=== PATIENT | male | born 1960 | race Caucasian/White ===

== ENCOUNTER 2019-06-03 07:47 | Day surgery (SDC) | payer BC ==
[~2019-06-03 07:47] MED LIST: Lactated Ringers 1,000 ML IV SCH
[2019-06-03] MEDS ORDERED: fentaNYL 100 MCG/2 ML SDV ONE (09:39)
[2019-06-03] MEDS ORDERED: Propofol 200 MG/20 ML SDV ONE (09:39)
[2019-06-03] MEDS ORDERED: Midazolam 1 MG/ML 2 ML SDV ONE (09:39)
--- NOTE | 2019-06-03 13:37 | OR ---
DATE OF PROCEDURE: 06/03/2019 PREOPERATIVE DIAGNOSIS: History of adenomatous colon polyps. POSTOPERATIVE DIAGNOSES: Small transverse colon polyp, history of adenomatous colon polyps. PROCEDURE: Colonoscopy to the cecum with biopsy resection of small transverse colon polyp. SURGEON: Mendez Wilkerson MD ANESTHESIA: IV anesthesia with monitored anesthesia care. INDICATION: This 58-year-old white male is referred for a colonoscopy because of a history of adenomatous colon polyps. He says his last colonoscopic exam was done 5 years ago. I counseled him for the procedure, including risks and alternatives, and he gave his informed consent to proceed. DESCRIPTION OF PROCEDURE: The patient was placed in the left lateral decubitus position. IV anesthesia was administered by the Anesthesia Service. Time-out was held. A rectal exam was performed, which was unremarkable. The flexible video Olympus colonoscope was introduced through his anus, up his rectum, and out his colon all the way to the cecum. En route, in the transverse colon, we saw a small polyp, which was removed with a few bites of the biopsy forceps. Once the cecum was reached, the scope was slowly withdrawn examining the mucosa throughout. No additional mucosal abnormalities were noted. The scope was retroflexed in the rectum with the distal rectum appearing unremarkable. The scope was straightened and removed. He tolerated the procedure well. Mendez Wilkerson MD /[id number] MTDD
== END 2019-06-03 11:57 | disposition home or self-care (01) ==
LOC: JP.SDS 07:47
PROVIDERS: ATTEND Surgery
DX: Z12.11 Encounter for screening for malignant neoplasm of colon (principal); D12.3 Benign neoplasm of transverse colon; I10 Essential (primary) hypertension; E78.5 Hyperlipidemia, unspecified; E66.9 Obesity, unspecified; K21.9 Gastro-esophageal reflux disease without esophagitis; M19.90 Unspecified osteoarthritis, unspecified site; Z91.030 Bee allergy status; Z86.010 Personal history of colon polyps; Z68.34 Body mass index [BMI] 34.0-34.9, adult
CPT/HCPCS: 45380; 88305; J2250; J2704; J3010; J7120

== ENCOUNTER 2024-08-14 08:45 | Day surgery (SDC) | payer BC ==
[2024-08-14] MEDS: Sodium Chloride 0.9% 1,000 ML IV SCH (09:13)
[2024-08-14] MEDS ORDERED: Propofol 200 MG/20 ML SDV ONE (09:55)
[2024-08-14] MEDS ORDERED: Midazolam 1 MG/ML 2 ML SDV ONE (09:55)
[2024-08-14] MEDS ORDERED: fentaNYL 50 MCG/ML SDV ONE (09:55)
== END 2024-08-14 11:51 | disposition home or self-care (01) ==
LOC: JP.SDS 08:45
PROVIDERS: ATTEND Surgery
DX: Z12.11 Encounter for screening for malignant neoplasm of colon (principal); D12.2 Benign neoplasm of ascending colon; D12.3 Benign neoplasm of transverse colon; D12.4 Benign neoplasm of descending colon; D12.5 Benign neoplasm of sigmoid colon; I25.10 Atherosclerotic heart disease of native coronary artery without angina pectoris; I10 Essential (primary) hypertension; K21.9 Gastro-esophageal reflux disease without esophagitis; E11.9 Type 2 diabetes mellitus without complications; E66.9 Obesity, unspecified
CPT/HCPCS: 00811; 45380; 45385; 88305; J2250; J2704; J3010; J7030

== ENCOUNTER 2025-02-08 06:27 | Day surgery (SDC) | payer BC ==
[2025-02-08] MEDS ORDERED: Propofol 200 MG/20 ML SDV ONE (06:45)
[2025-02-08] MEDS ORDERED: Midazolam 1 MG/ML 2 ML SDV ONE (06:45)
[2025-02-08] MEDS ORDERED: fentaNYL 50 MCG/ML SDV ONE (06:46)
[2025-02-08] MEDS: Lactated Ringers 1,000 ML IV SCH (07:15)
== END 2025-02-08 10:15 | disposition home or self-care (01) ==
LOC: JP.SDS 06:27
PROVIDERS: ATTEND Surgery
DX: Z12.11 Encounter for screening for malignant neoplasm of colon (principal); D12.3 Benign neoplasm of transverse colon; K63.5 Polyp of colon; K51.40 Inflammatory polyps of colon without complications; I10 Essential (primary) hypertension; E11.9 Type 2 diabetes mellitus without complications; E66.9 Obesity, unspecified; Z86.0100 Personal history of colon polyps, unspecified
CPT/HCPCS: 00811-QZ; J2250; J2704; J3010; J7120